=== PATIENT | male | born 1985 | race Two or more races ===

== ENCOUNTER 2024-07-19 07:00 | Day surgery (SDC) | payer MEDICAID, SELFPAY ==
[2024-07-18 10:24] VITALS: BMI 28.0
--- NOTE | 2024-07-18 10:38 | EKG_ITS ---
[facility] Test Date: 2024-07-18 Pat Name: PHIL MUÑOZ Department: Room: - Gender: Male [facility] Fetal Phys[facility] 1985 Requested By: Jagdeep Farooq Order Number: [id number] Reading MD: Jagdeep Farooq Measurements Intervals [place] Rate: 65 P: 30 IL: 146 QRS: -5 QRSD: 87 T: 8 QT: 378 QTc: 395 Interpretive Statements SINUS RHYTHM LEFT VENTRICULAR HYPERTROPHY AND ST-T CHANGE No previous ECG available for comparison /[id number]/[id number]
[2024-07-18 11:50] LABS: Basophils # (Auto) 0.1 Thou/mm3 (0.0-0.2); Basophils % (Auto) 1 % (0-2.5); Eosinophils # (Auto) 0.4 Thou/mm3 (0.0-0.5); Eosinophils % (Auto) 5 % (0-10); Hematocrit 44.1 % (41.0-53.0); Hemoglobin 14.8 g/dL (13.5-16.0); Immature Granulocytes % (Auto) 0 % (0-0); Immature Granulocytes Auto 0.02 Thou/mm3 (0.00-0.00); Lymphocytes # (Auto) 1.9 Thou/mm3 (1.0-4.8); Lymphocytes % (Auto) 25 % (10-50); Mean Corpuscular HGB Conc 33.6 g/dl (31.0-37.0); Mean Corpuscular Hemoglobin 28.6 pg (25.0-35.0); Mean Corpuscular Volume 85 fL (80-100); Monocytes # (Auto) 0.6 Thou/mm3 (0.0-0.8); Monocytes % (Auto) 8 % (0-12); Neutrophils # (Auto) 4.8 Thou/mm3 (1.8-7.7); Neutrophils % (Auto) 62 % (37-80); Nucleated Red Blood Cell % 0 /100 WBC (0); Platelet Count 247 Thou/mm3 (140-440); RDW Standard Deviation 39.4 fL (35.1-43.9); Red Blood Count 5.17 Miln/mm3 (4.50-5.90); White Blood Count 7.7 Thou/mm3 (3.8-10.6)
[2024-07-18 12:00] LABS: Alanine Aminotransferase 22 U/L (10-49); Albumin, Serum 4.6 gm/dL (3.5-5.0); Albumin/Globulin Ratio 1.8 (1.2-2.2); Alkaline Phosphatase 76 U/L (46-116); Anion Gap 6 (7-16); Aspartate Amino Transferase 23 U/L (0-34); BUN/Creatinine Ratio 9 Ratio (12-20); Bilirubin,Total 0.8 mg/dL (0.3-1.2); Blood Urea Nitrogen 8 mg/dL (9-23); Calcium 9.8 mg/dL (8.3-10.6); Calcium (Corrected) 9.8 mg/dL (8.5-10.1); Carbon Dioxide 29.5 mMol/L (20.0-31.0); Chloride 105 mMol/L (98-107); Creatinine (Component) 0.9 mg/dL (0.6-1.3); Estimated Creatinine Clearance 103.1 mL/min (>60); Globulin 2.5 gm/dL (2.3-3.5); Glucose 92 mg/dL (74-106); Osmolality,Calculated 277 (275-295); Potassium 4.2 mMol/L (3.4-5.1); Sodium 140 mMol/L (136-145); Total Protein 7.1 gm/dL (5.7-8.2); eGFR > 60 See Note
[2024-07-18 12:25] LABS: INR 1.1 (0.9-1.3); Prothrombin Time 11.8 Seconds (9.0-12.2)
--- NOTE | 2024-07-18 12:49 | SUR.PREOP ---
Cardiac history and records reviewed with Dr Farooq.
--- NOTE | 2024-07-18 14:28 | SUR.PREOP ---
Pt notified to come in at 0700 tomorrow for surgery.
[2024-07-19] VITALS (9 sets, daily range): BP systolic 112–134; BP diastolic 66–99; PULSE 76–99; RESP 13–20; TEMP 36.1–37.4; O2SAT 95–100; BMI 27.3
[2024-07-19] MEDS: RINGERS LACTATED 1000 ML 1,000 ML 20 ML IV (08:16)
--- NOTE | 2024-07-19 10:45 | SUR.PHASEI ---
1045 Patient arrived to recovery resting comfortably in [facility], drowsy and able to arouse with verbal prompting, on oxygen 8L via oxy mask, breathing unlabored, vital signs stable, denies pain, dressing intact to abdomen; sutures, adaptic, gauze, medipore tape, no bleeding noted, lung sounds clear upon auscultation, bilateral radial pulses present when palpated, report received from Jerry EMANUEL and Dr. Thorpe
--- NOTE | 2024-07-19 10:49 | ESOP_ITS ---
Date of Procedure 07/19/24 Pre Op Diagnosis Symptomatic umbilical hernia Post Op Diagnosis Same Procedure Repair of the symptomatic umbilical hernia with 1.7 inch Ventralex mesh Findings Patient was found to have a defect which easily admitted my index finger measuring about 1.5 cm in diameter Procedure Description After the patient was brought to the operating room and Trulance was given. Abdomen was prepped with ChloraPrep solution and draped in a sterile manner. Timeout is performed. The made a curved incision in the lower portion of the umbilicus in a semilunar fashion. Using Kev retractors I dissected out the subcutaneous tissue and reach the sac which contained the fat. Upon opening the sac I found out that it had some omentum. I excised omentum and the sac until the fascia was reached. Then I ascertain the defect which was fairly large and admitted my index finger. I chose 1.7 inch Ventralex mesh and placed it un derneath the fascia and then I sutured the Marlex straps to the edges with a 2-0 Prolene. Then I attached the back of the umbilical skin to the fascia. Subcutaneous tissue was closed with 3-0 chromic and injected local anesthesia the skin was closed with 4-0 Monocryl. Dressing was applied with Adaptic and 4 x 4 gauze with compression on the patient tolerated the procedure. Anesthesia GETA Pathology / specimen None Estimated Blood Loss 30 Surgeon Rinku Gardner MD Surgical Staff Operation Date: 07/19/24 09:00 <No data on this case meets the specified criteria>
--- NOTE | 2024-07-19 11:44 | SUR.PHASEII ---
1144 Report given to Eugenie Woods RN
--- NOTE | 2024-07-19 12:25 | SUR.PHASEII ---
pt awake, alert, able to follow commands, breathing unlabored, dressing to abdomen clean, dry, and intact, discharge instructions given with mother present using telephone phone counselor Sherri ID#[id number], pt discharged via wheelchair with all belongings and copies of discharge paperwork
== END 2024-07-19 12:25 | disposition home or self-care (01) ==
PROVIDERS: PCP Family Medicine; Referring Provider Surgery; Visit Provider Surgery
PROC: (CPT 49592; principal; 2024-07-19 09:00)
DX: K42.9 Umbilical hernia without obstruction or gangrene (principal); Z01.810 Encounter for preprocedural cardiovascular examination
CPT/HCPCS: 49592; 36415; 80053; 85025; 85610; 85730; 93005; A4217; A4649; C1781; J2250; J2704; J3010; J3490; J7120; A9270